=== PATIENT | male | born 1950 | race African-American/Black ===

== ENCOUNTER 2016-10-27 14:59 | Inpatient (IN) | payer OTHER ==
[~2016-10-27] VITALS: Ht 190.5 cm; Wt 119.7 kg
--- NOTE | ~2016-10-27 | EKG ---
[address] [place] [address] ELECTROCARDIOGRAM REPORT Name: CON GRAMAJO Room #: 419-P ADM IN M.R.#: [id number] Admission: 10/27/16 Attend Phys: Mahamed Nicholson DO Discharge: Date of : 52 Report #: [id number] THIS REPORT FOR: //name// [facility] ED Test Date: 2016-10-27 Test Time: 15:06:47 Pat Name: CON GRAMAJO Department: Room: [facility] Gender: M Marketing Research Intern: MZOOMina : 1950 Requested By: Carroll Brambila Order Number: [id number] MD: Humphrey Montana Measurements Intervals [place] Rate: 101 P: 49 NE: 190 QRS: 80 QRSD: 154 T: 48 QT: 376 QTc: 488 Interpretive Statements Sinus tachycardia Right bundle branch block No previous ECG available for comparison Electronically Signed On 10-28-2016 8:07:39 CDT by Humphrey Montana [email or web address] <ELECTRONICALLY SIGNED> By: Humphrey Montana MD, [facility] 10/28/16 0807 [id number] Humphrey Montana MD, FACC /EPI
--- NOTE | ~2016-10-27 | 2DMMODE ---
[facility] [address] [place] [address] 2 D/M-MODE ECHOCARDIOGRAM Name: CON GRAMAJO Room #: 419-P [facility] IN M.R.#: [id number] Admission: 10/27/16 Attend Phys: Mahamed Nicholson, Discharge: Date of : 52 Date of Service: 10/28/16 1224 Report #: [id number] THIS REPORT FOR: //name// APPROVED REPORT Study performed: 10/28/2016 11:11:45 EXAM: Comprehensive 2D, Doppler, and color-flow Echocardiogram Patient Location: Echo lab Room #: 419 Blood Pressure: 155/102 mmHg HR: 93 bpm Rhythm: NSR Other Information Study Quality: Excellent Indications Hypertension, syncope, atypical chest pain 2D Dimensions RVDd: 41.40 mm LVEF(%): 52.33 (>50%) IVSd: 15.92 (7-11mm) LVOT Diam: 22.75 (18-24mm) LVDd: 43.03 mm PWd: 15.45 (7-11mm) Ascending Ao: 35.41 (22-36mm) LVDs: 31.58 (25-40mm) Aortic Root: 38.47 mm Hernández's LVEF: 52.33 % Volumes Left Atrial Volume (Systole) Single Plane 4CH: 36.61 mL Single Plane 2CH: 49.75 mL LA ESV Index: 20.00 mL/m2 Aortic Valve AoV Peak Dayron.: 1.45 m/s AO Peak Gr.: 8.45 mmHg LVOT Max P.19 mmHg LVOT Max V: 1.02 m/s MARINA Vmax: 2.86 cm2 Mitral Valve E/A Ratio: 0.7 [facility] [place] [address] 2 D/M-MODE ECHOCARDIOGRAM Name: CON GRAMAJO [facility] Room #: 419-P [facility] IN .R.#: [id number] Admission: 10/27/16 Attend Phys: Mahamed Nicholson, Discharge: Date of : 52 Date of Service: 10/28/16 1224 Report #: [id number] MV Decel. Time: 154.90 ms MV E Max Dayron.: 0.73 m/s MV A Dayron.: 1.06 m/s MV PHT: 44.92 ms IVRT: 83.04 ms Pulmonary Valve PV Peak Dayron.: 0.98 m/s PV Peak Gr.: 3.84 mmHg Pulmonary Vein P Vein S: 0.46 m/s P Vein A: 0.35 m/s P Vein D: 0.44 m/s P Vein A Dur.: 72.7 msec P Vein S/D Ratio: 1.05 Tricuspid Valve RAP Estimate: 5.00 mmHg TR Peak Gr.: 3.00 mmHg Left Ventricle The left ventricle is normal size. There is normal LV segmental wall motion. Mild to moderate concentric left ventricular hypertrophy. Left ventricular systolic function is normal. LVEF is 55-60%. Grade I - abnormal relaxation pattern. Right Ventricle The right ventricle is normal size. The right ventricular systolic function is normal. Atria The left atrium size is normal. The right atrium size is normal. Aortic Valve Aortic valve is mildly thickened. No aortic regurgitation is present. There is no aortic valvular stenosis. Mitral Valve The mitral valve is normal in structure. Trace mitral regurgitation. No evidence of mitral valve stenosis. Tricuspid Valve The tricuspid valve is normal in structure. There is trace tricuspid regurgitation. Pulmonic Valve The pulmonary valve is normal in structure. Trace pulmonic [facility] [address] [place] [address] 2 D/M-MODE ECHOCARDIOGRAM Name: CON GRAMAJO [facility] Room #: 419-P [facility] IN .R.#: [id number] Admission: 10/27/16 Attend Phys: Mahamed Nicholson, Discharge: Date of : 52 Date of Service: 10/28/16 1224 Report #: [id number] regurgitation. Great Vessels The aortic root is normal in size. The ascending aorta is normal in size. IVC is normal in size and collapses >50% with inspiration. Pericardium There is no pericardial effusion. <Conclusion> The left ventricle is normal size. LVEF is 55-60%. Aortic valve is mildly thickened. No aortic regurgitation is present. There is no aortic valvular stenosis. The mitral valve is normal in structure. Trace mitral regurgitation. The tricuspid valve is normal in structure. There is trace tricuspid regurgitation. The pulmonary valve is normal in structure. Trace pulmonic regurgitation. <ELECTRONICALLY SIGNED> By: Addy Chahal MD 10/28/16 1224 1224 1224 Addy Chahal MD /INF
--- NOTE | ~2016-10-27 | HC ---
[facility] [place] [address] CONSULTATION Name: CON GRAMAJO Room #: 419-P [facility] IN M.R.#: [id number] Admission: 10/27/16 Attend Phys: Chung Rogers MD Discharge: 10/30/16 Date of : 52 Report #: [id number] THIS REPORT FOR: //name// CC: Chung Chavez DATE OF SERVICE: 10/28/2016 REASON FOR CONSULTATION: Hypertension and chronic kidney disease in this patient previously followed at the [facility]. HISTORY OF PRESENT ILLNESS: The patient reports that he was in his usual state of good health when he experienced the acute onset of lightheadedness and had a ugo loss of consciousness episode. There was no associated abnormal motor activity or suspected seizure activity. He denies chest pain or other constitutional complaints. He recovered consciousness in the matter of less than 20 seconds. He denies recent fevers, chills, sweats or other constitutional complaints. He presented to the emergency room for evaluation and was subsequently admitted when his creatinine was elevated to 1.6. PAST MEDICAL HISTORY: Remarkable for diet-controlled diabetes mellitus, hypertension and dyslipidemia. SOCIAL HISTORY: He is a smoker of approximately half pack of cigarettes daily. He does not use alcohol or have any history of substance abuse. ALLERGIES: He reports allergy to IBUPROFEN. MEDICATIONS: On admission include lisinopril 40 mg daily. FAMILY HISTORY: Negative for renal disease. REVIEW OF SYSTEMS: Remarkable for the absence of peripheral edema. He denies shortness of breath, productive cough, hemoptysis, chest pain, palpitations, nausea, vomiting, diarrhea or constipation. PHYSICAL EXAMINATION: GENERAL: Reveals a well-developed, well-nourished, pleasant male appearing his stated age, in no acute distress. VITAL SIGNS: Blood pressure 155/102, temperature 98.6, pulse 81, respirations 18. SKIN: Warm and dry without rash or erythema. There is no gross clubbing, cyanosis, edema or adenopathy seen. HEENT: The head is normocephalic and atraumatic. The sclerae are white and the conjunctivae are not injected. The pharynx is benign. NECK: Supple. [facility] [address] [place] [address] CONSULTATION Name: CON GRAMAJO Room #: 419-P [facility] IN .R.#: [id number] Admission: 10/27/16 Attend Phys: Chung Rogers MD Discharge: 10/30/16 Date of : 52 Report #: [id number] LUNGS: Cespedes are grossly clear to percussion and auscultation. CARDIOVASCULAR: Reveals a regular rate and rhythm without rub. Good peripheral pulses are noted. ABDOMEN: Soft and nontender, without palpable mass or organomegaly. NEUROLOGIC: Reveals the patient to be alert and cooperative with a nonfocal examination. LABORATORY STUDIES: Available at the time of consultation include sodium 141, potassium 3.8, chloride 107, CO2 of 22, BUN 17, creatinine 1.3, glucose 102. White blood cell count 10,900, hemoglobin 15.9, hematocrit 47.5, platelet count 249,000. Urinalysis reveals clear yellow urine, specific gravity 1.020, pH 6, negative for protein, 1+ glucose, negative for ketones, bilirubin and blood. ASSESSMENT: 1. Chronic kidney disease in the setting of suspected diabetes mellitus and hypertension. The patient has glucosuria and an elevated random glucose, but is not really pursuing an aggressive diabetes management program. We will check urine for protein creatinine as well as further serologic studies and a renal ultrasound to assess his current renal status. I believe with intravenous hydration he should recover renal function uneventfully. 2. Diabetes mellitus. 3. Hypertension. 4. Ongoing tobacco abuse. PLAN: Renal evaluation as outlined above. I have encouraged the patient to stop smoking. He will receive dietary instruction on a 2 g sodium diabetic diet. Please see orders. <ELECTRONICALLY SIGNED> By: Julio Arriaga MD 11/01/16 0747 [id number] [id number] Julio Arriaga MD /nt
[2016-10-27 15:05] VITALS: BP 204/116
[2016-10-27 15:37] LABS: ABSOLUTE NEUTROPHILS 8.6 thou/uL (1.4-8.2); BASOPHILS 0.4 % (0.0-2.0); EOSINOPHILS 0.8 % (0.0-3.0); HEMATOCRIT 47.5 % (42.0-52.0); HEMOGLOBIN 15.9 gm/dL (14.0-18.0); LYMPHOCYTES 14.7 % (24.0-44.0); MCH 26.7 pg (26.0-34.0); MCHC 33.5 g/dL (28.0-37.0); MCV 79.9 fL (80.0-100.0); MONOCYTES 5.5 % (1.0-8.0); PLATELET COUNT 249 thou/uL (150-400); POLYS 78.6 % (36.0-66.0); RBC 5.94 mil/uL (4.50-6.00); RDW 16.1 % (10.5-14.5); WBC 10.9 thou/uL (4.0-11.0)
[2016-10-27 15:43] LABS: ANION GAP 9 mmol/L (7-16); BUN 16 mg/dL (7-18); CALCIUM 9.2 mg/dL (8.5-10.1); CHLORIDE 108 mmol/L (98-107); CO2 26 mmol/L (21-32); CREATININE 1.6 mg/dL (0.7-1.3); GLUCOSE 182 mg/dL (74-106); SODIUM 143 mmol/L (136-145)
[2016-10-27 15:44] LABS: MANUAL DIFF NO
[2016-10-27 15:56] LABS: NT-PRO BRAIN NAT PEPTIDE 18 pg/mL (<300); TROPONIN-I < 0.04 ng/mL (<0.04-0.07)
[2016-10-27 18:10] VITALS: BP 187/111
[2016-10-27] MEDS ORDERED: LISINOPRIL20 MG PO (18:18)
[2016-10-27 18:26] LABS: CHOLESTEROL 201 mg/dL (<200); HDL CHOLESTEROL 43 mg/dL (>40); LDL CHOLESTEROL 111 mg/dL (<100); TC:HDL 4.7 Ratio (Not establshd); TRIGLYCERIDE 235 mg/dL (<150); VLDL 47 mg/dL (<40)
[2016-10-27 20:00] VITALS: BP 188/115
[2016-10-28] VITALS (7 sets, daily range): BP systolic 155–173; BP diastolic 88–114
[2016-10-28 06:30] LABS: ABSOLUTE NEUTROPHILS 4.2 thou/uL (1.4-8.2); BASOPHILS 0.7 % (0.0-2.0); EOSINOPHILS 2.6 % (0.0-3.0); HEMOGLOBIN 15.1 gm/dL (14.0-18.0); LYMPHOCYTES 36.9 % (24.0-44.0); MCH 26.9 pg (26.0-34.0); MCHC 33.5 g/dL (28.0-37.0); MCV 80.3 fL (80.0-100.0); PLATELET COUNT 233 thou/uL (150-400); POLYS 50.8 % (36.0-66.0); RDW 15.9 % (10.5-14.5); WBC 8.2 thou/uL (4.0-11.0)
[2016-10-28 06:32] LABS: MANUAL DIFF NO
[2016-10-28 06:40] LABS: CALCIUM 8.9 mg/dL (8.5-10.1); CREATININE 1.3 mg/dL (0.7-1.3); POTASSIUM 3.8 mmol/L (3.5-5.1)
[2016-10-28] MEDS ORDERED: ASPIR 8181 MG PO (11:12)
[2016-10-28 19:19] LABS: URINE BILIRUBIN NEGATIVE (Negative); URINE BLOOD NEGATIVE (Negative); URINE COLOR YELLOW; URINE GLUCOSE-RANDOM* 1+ (Negative); URINE KETONES NEGATIVE (Negative); URINE NITRITE NEGATIVE (Negative); URINE PROTEIN (DIPSTICK) NEGATIVE (Negative); URINE UROBILINOGEN 0.2 E.U./dl (0.2-1.0)
[2016-10-29 05:10] LABS: GLYCOHEMOGLOBIN (HGB A1C) 5.6 % (4.8-5.6)
[2016-10-29 06:00] LABS: HEMATOCRIT 45.8 % (42.0-52.0); HEMOGLOBIN 15.2 gm/dL (14.0-18.0); MCH 26.7 pg (26.0-34.0); MCHC 33.1 g/dL (28.0-37.0); MCV 80.5 fL (80.0-100.0); RBC 5.69 mil/uL (4.50-6.00); RDW 16.1 % (10.5-14.5); WBC 10.5 thou/uL (4.0-11.0)
[2016-10-29 06:20] VITALS: BP 184/125
[2016-10-29 06:27] LABS: ALBUMIN 3.4 g/dL (3.4-5.0); CALCIUM 8.9 mg/dL (8.5-10.1); CREATININE 1.5 mg/dL (0.7-1.3); PHOSPHORUS 3.4 mg/dL (2.5-4.9); POTASSIUM 3.9 mmol/L (3.5-5.1)
[2016-10-29 07:14] LABS: URINE CREATININE-RANDOM* 112.8 mg/dL (Not Estab.); URINE PROTEIN-RANDOM* 18.6 mg/dL (Not Estab.)
[2016-10-29 07:50] VITALS: BP 170/110
[2016-10-29 14:25] VITALS: BP 136/87
[2016-10-29 15:49] VITALS: BP 150/87
[2016-10-29 20:00] VITALS: BP 151/87
[2016-10-30 04:30] VITALS: BP 162/106
[2016-10-30 06:33] LABS: ALBUMIN 3.7 g/dL (3.4-5.0); CALCIUM 9.4 mg/dL (8.5-10.1); CREATININE 1.3 mg/dL (0.7-1.3); PHOSPHORUS 3.5 mg/dL (2.5-4.9)
[2016-10-30 07:22] VITALS: BP 158/80
[2016-10-30] MEDS ORDERED: CARVEDILOL12.5 MG PO (07:25)
[2016-10-30] MEDS ORDERED: ACCUPRIL40 MG PO (07:25)
[2016-10-30] MEDS ORDERED: AMLODIPINE BESY10 MG PO (07:25)
[2016-10-30 12:01] VITALS: BP 158/80
[2016-10-30 12:02] VITALS: BP 158/80
[2016-10-30 13:13] LABS: KAPPA FREE LIGHT CHAINS 15.25 mg/L (3.30-19.40); KAPPA/LAMBDA RATIO 0.12 (0.26-1.65); LAMBDA FREE LIGHT CHAINS 125.74 mg/L (5.71-26.30)
[2016-10-31 16:12] LABS: c-ANCA <1:20 titer (Neg:<1:20); p-ANCA <1:20 titer (Neg:<1:20)
== END 2016-10-30 12:36 | disposition home health service (06) | DRG 312 ==
LOC: ER 14:59 → 4E 16:47 → EROBS 16:47 → 4E 17:20
PROVIDERS: Hospitalist; Internal Medicine Geriatric Medicine; Internal Medicine Nephrology; Nurse Practitioner; Nurse Practitioner Gerontology
DX: R55 Syncope and collapse (principal); E78.5 Hyperlipidemia, unspecified; F17.210 Nicotine dependence, cigarettes, uncomplicated; R07.89 Other chest pain; E11.22 Type 2 diabetes mellitus with diabetic chronic kidney disease; I12.9 Hypertensive chronic kidney disease with stage 1 through stage 4 chronic kidney disease, or unspecified chronic kidney disease; N18.9 Chronic kidney disease, unspecified; Z91.041 Radiographic dye allergy status; Z88.6 Allergy status to analgesic agent
CPT/HCPCS: 10183

== ENCOUNTER → 2020-03-27 | Outpatient (CLI) | payer OTHER ==
[~2020-03-27] MED LIST: ACCUPRIL40 MG PO; AMLODIPINE BESY10 MG PO; ASPIR 8181 MG PO; CARVEDILOL12.5 MG PO; LISINOPRIL20 MG PO
== END ==
LOC: LAB 07:32
PROVIDERS: ATTEND Specialist
DX: Z01.812 Encounter for preprocedural laboratory examination (principal); Z20.828 Contact with and (suspected) exposure to other viral communicable diseases

== ENCOUNTER 2020-04-02 17:36 | Emergency (ER) | payer OTHER ==
[~2020-04-02] VITALS: Ht 188 cm; Wt 112.0 kg
[2020-04-02 17:37] VITALS: BP 159/98
[2020-04-02] MEDS ORDERED: METFORMIN HCL500 M3 PO (17:44)
[2020-04-02 18:53] LABS: BE(vivo) 0 mmol/L (-2 to +3); PCO2 37.6 mmHg (35.0-45.0); PO2 78.1 mmHg (80.0-100.0); pH 7.423 (7.360-7.450); sO2 95.8 % (92.0-98.0)
== END 2020-04-02 19:23 | disposition home or self-care (01) ==
LOC: ER 17:36
PROVIDERS: Emergency Medicine
DX: R51.9 Headache, unspecified (principal); I10 Essential (primary) hypertension; F17.210 Nicotine dependence, cigarettes, uncomplicated; Z79.899 Other long term (current) drug therapy; Z88.8 Allergy status to other drugs, medicaments and biological substances; Z91.041 Radiographic dye allergy status